=== PATIENT | male | born 1970 | race Caucasian/White ===

== ENCOUNTER 2020-09-21 23:04 | Inpatient (IN) | payer BC, SELFPAY ==
[2020-09-21 23:18] VITALS: BP 132/83; PULSE 99; RESP 17; TEMP 36.6; O2SAT 96; BMI 24.3
--- NOTE | 2020-09-21 23:38 | PC.NURSE ---
ARNEL called and spoke with Avis, confirmed that patient got seen in the community, disposition is section 12 Inpatient Bed search.
[2020-09-21 23:52] LABS: Glucose Urine UA NEG (NEG); Leukocyte Esterase Urine NEG (NEG); Nitrite Urine NEG (NEG); Specific Gravity - Urine <= 1.005 (1.005-1.025); Urine Blood NEG (NEG); Urine Ketones NEG (NEG); Urine Protein NEG (NEG-TRACE)
[2020-09-21 23:58] LABS: Appearance Urine CLEAR; Color Urine YELLOW
[2020-09-22 00:04] LABS: Bacteria Urine TRACE /LPF; RBC Urine 0-2 /HPF (0); Squamous Epithelial Cell Urine TRACE /LPF; WBC Urine 0-2 /HPF (0-4)
[2020-09-22 00:10] LABS: Basophils Percent Auto 0.5 % (0-2); Eosinophils Absolute Auto 0.2 X10*3/uL (0.0-0.4); Eosinophils Percent Auto 2.2 % (0-4); Hematocrit 43.3 % (42-52); Imm Gran Abs Auto 0.01 X10*3/uL (0.00-0.03); Imm Gran Pct Auto 0.1 % (0.0-0.4); Lymphocytes Absolute Auto 2.8 X10*3/uL (1.2-4.9); Lymphocytes Percent Auto 36.9 % (20-40); MANUAL DIFF FLAG NO; Mean Corpuscular HGB Conc 34.6 g/dl (31.0-36.0); Mean Corpuscular Hemoglobin 32.6 pg (27.0-33.0); Mean Corpuscular Volume 94.1 fL (80-98); Mean Platelet Volume 8.5 fL (9.4-12.4); Monocytes Absolute Auto 0.7 X10*3/uL (0.1-1.2); Monocytes Percent Auto 9.3 % (2-11); Neutrophils Absolute Auto 3.9 X10*3/uL (2.0-8.3); Platelet Count 221 X10*3/uL (160-400); Red Cell Distribution Width 12.7 % (11.0-16.0); White Blood Count 7.6 X10*3/uL (4.8-10.8)
[2020-09-22 00:21] LABS: Amphetamine Screen Urine Not Detected (Not Detect); Barbiturates, Urine Not Detected (Not Detect); Benzodiazepines Screen Urine Not Detected (Not Detect); Cannabinoid Screen Urine Not Detected (Not Detect); Cocaine Screen Urine Not Detected (Not Detect); Opiate Screen Urine Not Detected (Not Detect); Phencyclidine Screen Urine Not Detected (Not Detect)
[2020-09-22 00:31] LABS: Influenza A PCR NEGATIVE (Negative); Influenza B PCR NEGATIVE (Negative); Resp Syncy Virus RNA Qual PCR NEGATIVE (Negative); SARS COV2 PCR INHOUSE NEGATIVE (Negative)
--- NOTE | 2020-09-22 00:44 | ED_ITS ---
HPI - Psych General Chief Complaint: Psychiatric Symptoms Stated Complaint: SI Time Seen by Provider: 09/22/20 00:41 Source: patient and EMS Mode of arrival: EMS Limitations: no limitations History of Present Illness HPI Narrative: Patient comes to emergency room by EMS. Patient states that he feels suicidal, wants to run into traffic, also states that he would kill himself by inhaling carbon monoxide from a car engine. Patient reports that he recently was discharged/kicked out of [facility]. Patient was seen by [facility] in the community, is now under Section 12. Patient states every day he is anxious and depressed. Patient states that he is an alcoholic and would like to get help for detox Related Data Allergies Allergy/AdvReac Type Severity Reaction Status Date / Time No Known Allergies Allergy Verified 09/21/20 23:29 Review of Systems Review of Systems: Constitutional : No Weight loss, No Fever, No Chills, No Night Sweats, No Fatigue, No Malaise ENT/Mouth : No Hearing loss, No Ear Pain, No Nasal Congestion, No Sinus Pain, No Hoarseness, No sore throat, No Rhinorrhea, No Swallowing Difficulty Eyes: No Eye Pain, No Swelling, No Redness, No Foreign Body, No Discharge, No Vision Changes Cardiovascular : No Chest Pain, No SOB, No Dyspnea on Exertion, No Orthopnea, No Edema, No Palpitations Respiratory : No Cough, No Sputum, No Wheezing, No Smoke Exposure, No Dyspnea Gastrointestinal : No Nausea, No Vomiting, No Diarrhea, No Constipation, No abdominal Pain, No Hematochezia, No Melena Genitourinary : no irregular bleeding, No Dysuria, No Urinary Frequency, No Hematuria, No Urinary Incontinence, No Urgency, No Flank Pain, No Urinary Flow Changes, No Hesitancy Musculoskeletal : No joint pain, No Myalgias, No Joint Swelling Skin : No Skin Lesions, No rash Neuro : No Weakness, No Numbness, No Paresthesias, No Loss of Consciousness, No Dizziness, No Headache Psych : Complain of anxiety and depression, wanting detox for alcoholism, intermittently is SI with a plan, and intermittently no SI or HI Heme/Lymph: No Bruising, No Bleeding,No Lymphadenopathy Endocrine : No Polyuria, No Polydipsia, No Temperature Intolerance PMFSH Social History Social History Advance Directives: No Advance Directives Information Provided: No Physical Exam Vital Signs: Vital Signs: Last Vital Signs Temp 98 F 09/21/20 23:18 Pulse 99 09/21/20 23:18 Resp 17 09/21/20 23:18 BP 132/83 09/21/20 23:18 Pulse Ox 96 09/21/20 23:18 Body Mass Index 24.3 Const: Other: Appearance: Alert. Oriented X3. No acute distress. Seems anxious Eyes: Pupils equal, round and reactive to light. ENT: Pharynx normal. Neck: Normal inspection. Neck supple. No lymph nodes noted. No crepitus CVS: Normal heart rate and rhythm. Pulses normal. Normal S1 and S2 Respiratory: No respiratory distress. Breath sounds normal. No Wheezing. No rales Abdomen: Soft and nontender. No rigidity. No distention. good BS x4 Skin: Skin warm and dry. Normal skin color. Normal skin turgor. Extremities: No lower extremity edema. No lower extremity edema. No Lacerations. No Rash Neuro: Oriented X 3. No motor deficit. No sensory deficit. Cranial nerves 2- 12 grossly intact, calm, cooperative Course Course Course Narrative: Patient remains calm and cooperative, ETOH level 222. [facility] health network consult pending, now under Section 12 by [facility] in the community, patient has a bed search. Physician observation started. Sign-out given to Dr. Garcia [facility] - Psych Lab Data Result diagrams: 09/22/20 00:02 09/22/20 00:02 Labs: Lab Results 09/21/20 09/21/20 09/21/20 Range/Units 23:40 23:40 23:40 WBC (4.8-10.8) X10*3/uL RBC (4.60-5.80) X10*6/uL Hgb (14.0-18.0) g/dl Hct (42-52) % MCV (80-98) fL MCH (27.0-33.0) pg MCHC (31.0-36.0) g/dl RDW (11.0-16.0) % Plt Count (160-400) X10*3/uL MPV (9.4-12.4) fL Immature Gran % (Auto) (0.0-0.4) % Neut % (Auto) (45-73) % Lymph % (Auto) (20-40) % [place] % (Auto) (2-11) % Eos % (Auto) (0-4) % Baso % (Auto) (0-2) % Lymph # (Auto) (1.2-4.9) X10*3/uL [place] # (Auto) (0.1-1.2) X10*3/uL Eos # (Auto) (0.0-0.4) X10*3/uL Baso # (Auto) (0.0-0.2) X10*3/uL Abs Immat Gran (auto) (0.00-0.03) X10*3/uL Absolute Neuts (auto) (2.0-8.3) X10*3/uL Absolute Nucleated RBC (0.0-0.012) X10*3/uL Nucleated RBC % (auto) (0.0-0.2) /100WBC Sodium (135-145) mmol/L Potassium (3.3-5.1) mmol/L Chloride (96-108) mmol/L Carbon Dioxide (22-29) mmol/L Anion Gap (12-20) BUN (9-16) mg/dL Creatinine (0.5-1.4) mg/dL Estim Creat Clear Calc Estimated GFR Random Glucose (60-115) mg/dL Calcium (8.4-10.2) mg/dL Magnesium (1.6-2.6) mg/dL Urine Color YELLOW Urine Appearance CLEAR Urine pH 6.0 (5.0-8.0) Ur Specific [place] <= 1.005 (1.005-1.025) Urine Protein NEG (NEG-TRACE) MG/DL Urine Glucose (UA) NEG (NEG) MG/DL Urine Ketones NEG (NEG) MG/DL Urine Blood NEG (NEG) Urine Nitrite NEG (NEG) Ur Leukocyte Esterase NEG (NEG) Urine RBC 0-2 (0) /HPF Urine WBC 0-2 (0-4) /HPF Ur Squamous Epith Cells TRACE /LPF Urine Bacteria TRACE /LPF Urine Opiates Screen Not Detected (Not Detect) Ur Barbiturates Screen Not Detected (Not Detect) Ur Phencyclidine Scrn Not Detected (Not Detect) Ur Amphetamines Screen Not Detected (Not Detect) U Benzodiazepines Scrn Not Detected (Not Detect) Urine Cocaine Screen Not Detected (Not Detect) U Marijuana (THC) Screen Not Detected (Not Detect) Ethyl Alcohol mg/dL Coronavirus (PCR) NEGATIVE (Negative) Influenza Type A (PCR) NEGATIVE (Negative) Influenza Type B (PCR) NEGATIVE (Negative) RSV RNA Qual (PCR) NEGATIVE (Negative) 09/22/20 09/22/20 09/22/20 Range/Units 00:02 00:02 00:02 WBC 7.6 (4.8-10.8) X10*3/uL RBC 4.60 (4.60-5.80) X10*6/uL Hgb 15.0 (14.0-18.0) g/dl Hct 43.3 (42-52) % MCV 94.1 (80-98) fL MCH 32.6 (27.0-33.0) pg MCHC 34.6 (31.0-36.0) g/dl RDW 12.7 (11.0-16.0) % Plt Count 221 (160-400) X10*3/uL MPV 8.5 L (9.4-12.4) fL Immature Gran % (Auto) 0.1 (0.0-0.4) % Neut % (Auto) 51.0 (45-73) % Lymph % (Auto) 36.9 (20-40) % [place] % (Auto) 9.3 (2-11) % Eos % (Auto) 2.2 (0-4) % Baso % (Auto) 0.5 (0-2) % Lymph # (Auto) 2.8 (1.2-4.9) X10*3/uL [place] # (Auto) 0.7 (0.1-1.2) X10*3/uL Eos # (Auto) 0.2 (0.0-0.4) X10*3/uL Baso # (Auto) 0.0 (0.0-0.2) X10*3/uL Abs Immat Gran (auto) 0.01 (0.00-0.03) X10*3/uL Absolute Neuts (auto) 3.9 (2.0-8.3) X10*3/uL Absolute Nucleated RBC 0.000 (0.0-0.012) X10*3/uL Nucleated RBC % (auto) 0.0 (0.0-0.2) /100WBC Sodium 145 (135-145) mmol/L Potassium 3.7 (3.3-5.1) mmol/L Chloride 107 (96-108) mmol/L Carbon Dioxide 24 (22-29) mmol/L Anion Gap 18 (12-20) BUN 7 L (9-16) mg/dL Creatinine 0.87 (0.5-1.4) mg/dL Estim Creat Clear Calc 99.3 Estimated GFR > 60 Random Glucose 97 (60-115) mg/dL Calcium 9.7 (8.4-10.2) mg/dL Magnesium 1.8 (1.6-2.6) mg/dL Urine Color Urine Appearance Urine pH (5.0-8.0) Ur Specific [place] (1.005-1.025) Urine Protein (NEG-TRACE) MG/DL Urine Glucose (UA) (NEG) MG/DL Urine Ketones (NEG) MG/DL Urine Blood (NEG) Urine Nitrite (NEG) Ur Leukocyte Esterase (NEG) Urine RBC (0) /HPF Urine WBC (0-4) /HPF Ur Squamous Epith Cells /LPF Urine Bacteria /LPF Urine Opiates Screen (Not Detect) Ur Barbiturates Screen (Not Detect) Ur Phencyclidine Scrn (Not Detect) Ur Amphetamines Screen (Not Detect) U Benzodiazepines Scrn (Not Detect) Urine Cocaine Screen (Not Detect) U Marijuana (THC) Screen (Not Detect) Ethyl Alcohol 222 mg/dL Coronavirus (PCR) (Negative) Influenza Type A (PCR) (Negative) Influenza Type B (PCR) (Negative) RSV RNA Qual (PCR) (Negative) Discharge Plan Discharge Clinical Impression: Alcohol dependence, Suicidal ideation
[2020-09-22 00:50] LABS: Ethanol 222 mg/dL
[2020-09-22] MEDS: LORazepam 1 MG TABLET 2 MG PO (00:50)
[2020-09-22 00:53] LABS: Anion Gap 18 (12-20); Blood Urea Nitrogen 7 mg/dL (9-16); Calcium 9.7 mg/dL (8.4-10.2); Carbon Dioxide 24 mmol/L (22-29); Chloride 107 mmol/L (96-108); Creatinine Clr Calc Pharmacy 99.3; Estimated Glomerular Filt Rate > 60; Glucose Random 97 mg/dL (60-115); Magnesium 1.8 mg/dL (1.6-2.6); Potassium 3.7 mmol/L (3.3-5.1); Sodium 145 mmol/L (135-145)
[2020-09-22 03:52] VITALS: BP 107/72; PULSE 83; RESP 16; TEMP 36.4; O2SAT 98
--- NOTE | 2020-09-22 07:07 | PC.NURSE ---
Patient had hard time falling sleep, provider ordered ativan 2 mg/administered as ordered/with + effect, and patient slept well, VSS, disposition inpatient bed search, will continue to monitor
--- NOTE | 2020-09-22 07:19 | PC.NURSE ---
patient remains at rest at present patient appears in no distress
[2020-09-22 10:47] VITALS: BP 124/85; PULSE 72; RESP 17; TEMP 36.6; O2SAT 95
[2020-09-22 22:00] VITALS: RESP 16
--- NOTE | 2020-09-22 23:40 | PC.NURSE ---
pt has been sleeping easy to arrouse, pt states he wants to seek detox. pt skin pink warm and dry no tremors seen or felt at this time.
--- NOTE | 2020-09-22 23:43 | PC.NURSE ---
pt sleeping visable on monitor, pod protocals maintained,
[2020-09-23 11:27] VITALS: BP 117/81; PULSE 63; RESP 18; TEMP 36.9; O2SAT 98
[2020-09-23 18:10] VITALS: BP 130/76; PULSE 62; TEMP 36.3; O2SAT 100
[2020-09-23] MEDS: Calcium Carbonate 750 MG TAB.CHEW 1500 MG PO (19:13)
--- NOTE | 2020-09-23 23:32 | PC.NURSE ---
Patient resting comfortably in bed no s/s of discomfort will continue to monitor.
[2020-09-24 00:33] VITALS: BP 113/76; PULSE 58; RESP 16; TEMP 36; O2SAT 100
[2020-09-24 08:04] VITALS: BP 124/81; PULSE 81; RESP 18; TEMP 36.1; O2SAT 99
--- NOTE | 2020-09-25 | ECG_ITS ---
Test Reason : MEDCLEARANCE Blood Pressure : / mmHG Vent. Rate : 061 BPM Atrial Rate : 061 BPM P-R Int : 156 ms QRS Dur : 096 ms QT Int : 382 ms P-R-T Axes : 046 057 018 degrees QTc Int : 384 ms Normal sinus rhythm Normal ECG No previous ECGs available Referred By: Cici Valentine Electronically Signed By:AVERY GAMA MD
[2020-09-25 00:16] VITALS: BP 117/78; PULSE 65; RESP 16; TEMP 36.6; O2SAT 100
--- NOTE | 2020-09-25 06:35 | PC.NURSE ---
Patient overall slept 4 hours, behavior appropriate, appetite good, disposition is section 12 inpatient bed search, VSS, asymptomatic, will continue to monitor.
--- NOTE | 2020-09-25 07:14 | PC.NURSE ---
patient remained at rest at beginning of shift, appears in no distress patient appropriately requesting snacks.
[2020-09-25 08:47] VITALS: BP 111/70; PULSE 73; RESP 15; TEMP 36.4; O2SAT 98
[2020-09-25] MEDS: Multivitamin TABLET 1 TAB PO (15:21)
[2020-09-25 16:20] VITALS: BP 130/96; PULSE 68; TEMP 36.5
--- NOTE | 2020-09-25 17:38 | PC.ADMIT ---
Pt is a 49 year old male who present to M5 from [facility] at approx 1625 on a cv status. Pt is covid -. Utox- Etoh BAL.222. Pt assessed at home via zoom secondary to endorsing SI with plan and intent to put the house in the tailpipe, tape up all the windows and asphyxiate so i don't hurt anymore. Pt experiencing increased depressive thoughts and feelings of helplessness, hopelessness, and worthlessness which has caused him to drink heavily over the past 6 months. Pt denied SI/HI/AVH during admit. Pt does not have any outpt services. Pt wanting a PCP and therapist. 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 Monitor for safety and start treatment plam.
[2020-09-25 22:30] VITALS: BP 128/72; PULSE 68; TEMP 36.7
[2020-09-26] MEDS: Acetaminophen 325 MG TABLET 650 MG PO ×2 (00:29→08:32)
[2020-09-26] MEDS: hydrOXYzine HCL 25 MG TABLET PO (00:30)
[2020-09-26 05:24] VITALS: BP 119/81; PULSE 68; RESP 16; TEMP 36; O2SAT 99
[2020-09-26 08:00] VITALS: BP 129/79; PULSE 69; RESP 16; TEMP 36.6; O2SAT 98
[2020-09-26] MEDS: Thiamine HCL 100 MG TABLET PO (08:32)
[2020-09-26 08:33] LABS: Estimated Average Glucose 97 mg/dL
[2020-09-26 08:49] LABS: Alanine Aminotransferase 39 U/L (0-40); Albumin Level 4.6 g/dL (3.5-5.0); Alkaline Phosphatase 71 U/L (39-117); Aspartate Amino Transferase 39 U/L (5-37); Bilirubin Direct 0.3 mg/dL (0.0-0.5); Bilirubin Total 0.6 mg/dL (0.0-1.0); Cholesterol 175 mg/dL; HDL Cholesterol 94 mg/dL; LDL Cholesterol Calculated 71 mg/dl; Total Protein 7.5 g/dL (6.5-8.0); Triglycerides 51 mg/dL
[2020-09-26 09:10] LABS: Free T4 (Free Thyroxine) 1.08 ng/dL (0.71-1.85); Thyroid Stimulating Hormone 1.39 uIU/mL (0.32-4.0)
[2020-09-26 09:34] LABS: Vitamin B12 365 pg/mL (200-900)
[2020-09-26 12:00] VITALS: BP 134/77; PULSE 76; RESP 16; TEMP 36.6; O2SAT 97
--- NOTE | 2020-09-26 14:00 | PC.NURSE ---
This nurse was informed that the PT might need nicotine alternatives to help with cravings. PT was asked if he would like something to help with cravings, but the PT declined.
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
[2020-09-26 16:00] VITALS: BP 134/92; PULSE 70; RESP 18; TEMP 36.6; O2SAT 99
[2020-09-26 18:00] VITALS: BP 134/92; PULSE 70; RESP 18; TEMP 36.6; O2SAT 99
[2020-09-26] MEDS: LORazepam 1 MG TABLET PO (19:15)
[2020-09-26] MEDS: Mirtazapine 15 MG TABLET PO (21:06)
[2020-09-27 05:48] VITALS: BP 117/60; PULSE 65; RESP 18; TEMP 35.7; O2SAT 100
[2020-09-27] MEDS: Lidocaine 4 % Patch ADH..PATCH 1 PATCH TRANSDERMA (06:36)
[2020-09-27] MEDS: Thiamine HCL 100 MG TABLET PO (08:29)
[2020-09-27] MEDS: LORazepam 1 MG TABLET PO (15:30)
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
[2020-09-27 17:18] VITALS: BP 111/74; PULSE 77; RESP 18; TEMP 36.7; O2SAT 97
[2020-09-27] MEDS: hydrOXYzine HCL 25 MG TABLET PO (20:34)
[2020-09-27] MEDS: Mirtazapine 15 MG TABLET PO (20:34)
[2020-09-28 06:00] VITALS: BP 112/75; PULSE 79; RESP 16; TEMP 36.3; O2SAT 98
[2020-09-28] MEDS: Thiamine HCL 100 MG TABLET PO (08:54)
[2020-09-28] MEDS: Lidocaine 4 % Patch ADH..PATCH 1 PATCH TRANSDERMA (11:51)
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
[2020-09-28 18:00] VITALS: BP 132/83; PULSE 95; TEMP 36.7
[2020-09-28] MEDS: Mirtazapine 15 MG TABLET PO (20:51)
[2020-09-29] MEDS: Acetaminophen 325 MG TABLET 650 MG PO (04:45)
[2020-09-29 06:00] VITALS: BP 106/67; PULSE 71; RESP 18; TEMP 36.1; O2SAT 98
[2020-09-29] MEDS: Thiamine HCL 100 MG TABLET PO (07:43)
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
== END 2020-09-29 12:00 | disposition home or self-care (01) | DRG 751 ==
LOC: HO.ED 09-23 16:58 → HO.PM5 09-25 14:14
PROVIDERS: Emergency Medicine; Admitting Provider Psychiatry & Neurology Psychiatry; Emergency Provider Emergency Medicine; Visit Provider Clinical Nurse Specialist Psychiatric/Mental Health, Adult
DX: F33.2 Major depressive disorder, recurrent severe without psychotic features (principal); R45.851 Suicidal ideations; F43.10 Post-traumatic stress disorder, unspecified; F17.210 Nicotine dependence, cigarettes, uncomplicated; F10.20 Alcohol dependence, uncomplicated; Z71.6 Tobacco abuse counseling; Z20.822 Contact with and (suspected) exposure to COVID-19; Z79.899 Other long term (current) drug therapy
CPT/HCPCS: 0241U; 36415; 80048; 80061; 80076; 80307; 81001; 82077; 82607; 83036; 83735; 84439; 84443; 85025; 93005; 99285

== ENCOUNTER 2022-09-20 18:01 | Inpatient (IN) | payer BC, SELFPAY ==
--- NOTE | ~2022-09-20 | XR_ITS ---
EXAMINATION: XR CHEST CLINICAL INFORMATION: Chest pain. COMPARISON: None available. TECHNIQUE: Frontal view of the chest was obtained. FINDINGS: Normal appearance of the cardiomediastinal silhouette. No focal airspace opacities, pleural effusion or pneumothorax. No acutely appearing displaced rib fractures. Visualized upper abdomen is within normal limits. XR/XR chest 1V IMPRESSION: No acute cardiopulmonary findings.
--- NOTE | ~2022-09-20 | CT_ITS ---
EXAMINATION: CT HEAD WITHOUT CONTRAST CLINICAL INFORMATION: Syncope. COMPARISON: No relevant prior imaging. TECHNIQUE: Contiguous axial imaging was performed from the skull base to vertex without intravenous administration of contrast. This CT examination was performed using dose optimization techniques as appropriate, variously including the following: *Automated exposure control *Adjustment of mA and/or kV according to patient size (this includes techniques or standardized protocols for targeted exams where dose is matched to indication/reason for exam; i.e. extremities or head) *Use of iterative reconstruction technique DLP: 680 mGy-cm FINDINGS: There is no acute intracranial hemorrhage or abnormal extra-axial collection. No intracranial mass effect or midline shift. Lateral and third ventricles are normal. No hydrocephalus. Méndez-white matter differentiation is preserved and there is no evidence of acute territorial infarct. The calvarium and skull base are intact. Mastoid air cells and middle ear cavities are well aerated. No active paranasal sinus disease. CT/CT head/brain wo IV con IMPRESSION: Normal CT scan of the head.
--- NOTE | 2022-09-20 18:05 | ECG_ITS ---
Test Reason : ETOH Blood Pressure : / mmHG Vent. Rate : 084 BPM Atrial Rate : 084 BPM P-R Int : 152 ms QRS Dur : 094 ms QT Int : 370 ms P-R-T Axes : 042 066 -29 degrees QTc Int : 437 ms Normal sinus rhythm Low voltage QRS Lateral infarct , age undetermined Abnormal ECG When compared with ECG of 25-SEP-2020 14:14, Lateral infarct is now Present T wave inversion more evident in Inferior leads Nonspecific T wave abnormality now evident in Lateral leads Referred By: Keri Joyner Electronically Signed By:EDNA SOLOMON
--- NOTE | 2022-09-20 18:12 | ED.GENADULT ---
HPI - General Adult General Chief complaint: Syncope Stated complaint: ETOH/Chest pain Time Seen by Provider: 09/20/22 18:05 Source: patient and EMS Mode of arrival: EMS Limitations: no limitations History of Present Illness HPI narrative: This is a 51-year-old male history of alcohol use disorder presenting to the emergency department via ambulance for evaluation of multiple syncopal episodes, seeking detox, also having suicidal ideation without particular plan. Patient tells me that he does not remember syncopized and, as mother reported to EMS that he syncopized 3 times, dropped from a standing height down to the ground. Head strike, loss of consciousness, patient not on thinners. Patient denying any headaches at this time or visual disturbances. Patient is reporting right-sided anterior chest wall pain that started today. Patient reports drinking 14 beers a day last drink was about an hour ago. Patient states he would like to go to detox, he is feeling suicidal and depressed. Patient denies shortness of breath, nausea, vomiting, abdominal pain, headache, vision changes, dizziness, weakness. Alert and oriented x4 on arrival. GCS 15. NIH stroke scale 0. Related Data Previous Rx's Medication Instructions Recorded lidocaine 4 % topical patch 1 patch transdermal DAILY PRN 09/29/20 (Lidocaine Pain Relief) back, knee #15 ea mirtazapine 15 mg tablet 15 mg PO BEDTIME #30 tabs 09/29/20 multivitamin 1 tab PO DAILY #30 tabs 09/29/20 thiamine mononitrate (vit B1) 100 100 mg PO DAILY #30 tabs 09/29/20 mg tablet trazodone 50 mg tablet 50 mg PO BEDTIME PRN Insomnia #30 09/29/20 tabs Allergies Allergy/AdvReac Type Severity Reaction Status Date / Time carrot Allergy Severe Anaphylaxis Verified 09/20/22 18:43 Review of Systems Review of Systems: Constitutional : No Weight loss, No Fever, No Chills, No Fatigue, No Malaise ENT/Mouth : No sore throat, No Rhinorrhea Eyes: No Eye Pain, No Swelling, No Redness Cardiovascular : + Chest Pain, No SOB, No Dyspnea on Exertion, No Orthopnea, No Edema, No Palpitations Respiratory : No Cough, No Sputum, No Wheezing Gastrointestinal : No Nausea, No Vomiting, No Diarrhea, No Constipation, No abdominal Pain, No Hematochezia, No Melena Genitourinary : No Dysuria, No Urinary Frequency, No Hematuria, Musculoskeletal : No joint pain, No Myalgias, No Joint Swelling Skin : No Skin Lesions, No rash Neuro : No Weakness, No Numbness, No Dizziness, No Headache Psych : No Anxiety/Panic, No Depression All other systems reviewed and are negative Yes all other systems are reviewed and are negative [facility]LY [facility] Past Medical History Attestation statement: The following information was validated with the patient. Source: old records reviewed and nursing notes reviewed Medical History Alcohol use disorder, severe, dependence PTSD (post-traumatic stress disorder) Recurrent major depression-severe Social History Social History Household Members: Family and None Household Members Other:: mother Housing: Apartment Do you presently have visiting nurse or other home services: No Alcohol intake: current Alcohol intake frequency: 3 or more drinks per day Alcohol type: beer and hard liquor Patient Tobacco Use Status: Current everyday Tobacco user Tobacco use type: Cigarette Cigarette Packs Per Day: 1.5 Cigarettes Per Day: 30.0 Years Smoked: 15+ Smoked in Last 30 Days: Yes Second Hand Smoke Exposure: Yes Use of substances other than those prescribed or required for medical reasons: Unknown Substance Use Type: Marijuana Advance Directives: No Advance Directives Information Provided: No service: No Sexual orientation: Straight/Heterosexual Physical Exam ED Vital Signs: Vital Signs - 24 hr 09/20/22 18:43 09/20/22 18:48 09/20/22 19:37 Temperature 98.2 F 98.5 F Pulse Rate 90 91 Respiratory Rate 16 16 Blood Pressure 122/77 131/75 Pulse Oximetry 96 96 96 Oxygen Delivery Method Room Air Room Air Room Air 09/20/22 22:12 Temperature Pulse Rate 84 Respiratory Rate 23 H Blood Pressure 117/71 Pulse Oximetry 95 Oxygen Delivery Method Room Air BMI result Body Mass Index 27.4 vss Appearance: Alert.? Oriented X3.? No acute distress.? Head: Normocephalic, atraumatic, no step-offs or deformities Eyes: Pupils equal, round and reactive to light.? CVS: Normal heart rate and rhythm.? Pulses normal.?+ right-sided anterior chest wall pain on palpation. Respiratory: No respiratory distress.? Breath sounds normal.? Abdomen: Soft and nontender.? Skin: Skin warm and dry.? Normal skin color.? Normal skin turgor.? Extremities: No lower extremity edema.? No calf ttp. 5/5 strength to bilateral upper and lower extremities Back: No midline tenderness, no C-spine tenderness, full range of motion, no CVA tenderness bilaterally Neuro: Oriented X 3.? No motor deficit.? No sensory deficit. CN 2-12 intact . Negative Romberg and pronator drift. Normal hand business information consultant. Normal [id number], [id number]. Course Reevaluation(s) Reevaluation #1: CBC with a normocytic anemia, however not deviating significantly from baseline. Chemistry unremarkable transaminases elevated in a 2-1 fashion likely secondary to alcohol abuse. Patient's total CPK noted to be 1063 consistent with acute rhabdo, patient with lactic acidosis likely secondary to poor p.o. intake/dehydration or alcoholic ketoacidosis I do not suspect infection, troponin 74.7, 2nd troponin 77.6, EKG nonischemic, chest pain reproducible unlikely ACS. Likely secondary to fall. D-dimer negative. Unlikely PE patient without significant risk factors. Urine positive for marijuana. Ethanol level 241. Patient placed on phenobarbital protocol by hospitalist, patient will be admitted for acute alcohol withdrawal, fall switch could be alcohol withdrawal seizures. Time: 22:59 Medications Administered Discontinued Medications Generic Name Dose Route Start Last Admin Trade Name Freq PRN Reason Stop Dose Admin Sodium Chloride 1,000 mls @ 999 mls/hr 09/20/22 20:30 09/20/22 21:44 Ns IV 09/20/22 21:30 Infused .Q1H1M KAYE Infusion Lorazepam 2 mg 09/20/22 20:25 09/20/22 20:37 Lorazepam 2 Mg/Ml Vial IVPUSH 09/20/22 20:26 2 mg ONCE ONE Administration Medical Decision Making Medical Decision Making [facility] Narrative: 1809 51-year-old male presents with multiple syncopal episodes per mother, seeking detox. History of alcohol withdrawal seizures. Physical examination neuro nonfocal. Cerebellar intact. Regular rate and rhythm. Abdomen soft nontender nondistended. Lungs clear. There is anterior right-sided chest wall tenderness to palpation Concerns for possible chest wall trauma secondary to fall/syncope. Will rule out rib fractures. Will obtain EKG to rule out dysrhythmias. Will rule out metabolic derangements and polysubstance abuse. Unlikely ACS or PE. Also some concerns for syncope. Will rule out orthostatic hypotension Plan labs, imaging, EKG Differential Diagnosis Differential Diagnoses: The differential diagnosis associated with the presentation includes Concerns for possible chest wall trauma secondary to fall/syncope. Will rule out rib fractures. Will obtain EKG to rule out dysrhythmias. Will rule out metabolic derangements and polysubstance abuse. Unlikely ACS or PE. Also some concerns for syncope vs seziure. Will rule out orthostatic hypotension Admission/Observation Consideration of admission/observation: Escalation of care including admission/observation considered Possible Consult Healthcare Provider Management of the patient was discussed with: Hospitalist Lab Data MDM Lab Attestation statement: I reviewed the patient's lab results. 09/20/22 18:30 09/20/22 18:30 Labs: Lab Results 09/20/22 09/20/22 09/20/22 Range/Units 18:30 18:30 18:30 WBC 10.7 (4.8-10.8) X10*3/uL RBC 4.21 L (4.60-5.80) X10*6/uL Hgb 13.8 L (14.0-18.0) g/dl Hct 39.1 L (42.0-52.0) % MCV 92.9 (80.0-98.0) fL MCH 32.8 (27.0-33.0) pg MCHC 35.3 (31.0-36.0) g/dl RDW 12.4 (11.0-16.0) % Plt Count 208 (160-400) X10*3/uL MPV 8.6 L (9.4-12.4) fL Immature Gran % (Auto) 0.5 H (0.0-0.4) % Neut % (Auto) 54.7 (45-73) % Lymph % (Auto) 33.9 (20-40) % [place] % (Auto) 9.9 (2-11) % Eos % (Auto) 0.5 (0-4) % Baso % (Auto) 0.5 (0-2) % Lymph # (Auto) 3.6 (1.2-4.9) X10*3/uL [place] # (Auto) 1.1 (0.1-1.2) X10*3/uL Eos # (Auto) 0.1 (0.0-0.4) X10*3/uL Baso # (Auto) 0.1 (0.0-0.2) X10*3/uL Abs Immat Gran (auto) 0.05 H (0.00-0.03) X10*3/uL Absolute Neuts (auto) 5.9 (2.0-8.3) x10*3/uL Absolute Nucleated RBC 0.000 (0.0-0.012) X10*3/uL Nucleated RBC % (auto) 0.0 (0.0-0.2) /100WBC D-Dimer High Sensitivty 209 NG/ML Sodium 143 (135-145) mmol/L Potassium 3.3 (3.3-5.1) mmol/L Chloride 103 (96-108) mmol/L Carbon Dioxide 25 (22-29) mmol/L Anion Gap 18 (12-20) BUN 5 L (9-16) mg/dL Creatinine 0.71 (0.5-1.4) mg/dL Estim Creat Clear Calc 119.0 Estimated GFR > 60 Random Glucose 106 (60-115) mg/dL Lactic Acid (0.5-2.0) mmol/L Lactic Acid F/U @ 2Hr (0.5-2.0) mmol/L Calcium 9.5 (8.4-10.2) mg/dL Magnesium 2.1 (1.6-2.6) mg/dL Total Bilirubin 0.7 (0.0-1.0) mg/dL AST 201 H (5-37) U/L ALT 121 H (0-40) U/L Alkaline Phosphatase 71 (39-117) U/L Total Creatine Kinase (38-174) U/L Troponin I High Sens (<3.5-35.0) ng/L Total Protein 7.9 (6.5-8.0) g/dL Albumin 4.8 (3.5-5.0) g/dL Lipase 87 H (8-78) U/L Urine Color Urine Appearance Urine pH (5.0-9.0) Ur Specific [place] (1.005-1.025) Urine Protein (Neg-Trace) mg/dL Urine Glucose (UA) (Negative) mg/dL Urine Ketones (Negative) mg/dL Urine Blood (Negative) Urine Nitrite (Negative) Ur Leukocyte Esterase (Negative) Urine RBC (0-2) /HPF Urine WBC (0-5) /HPF Ur Squamous Epith Cells (0-2) /HPF Urine Bacteria (None Seen) Hyaline Casts (0-2) /LPF Urine Opiates Screen (Not Detect) Urine Fentanyl Screen (Not Detect) Ur Barbiturates Screen (Not Detect) Ur Phencyclidine Scrn (Not Detect) Ur Amphetamines Screen (Not Detect) U Benzodiazepines Scrn (Not Detect) Urine Cocaine Screen (Not Detect) U Marijuana (THC) Screen (Not Detect) Ethyl Alcohol 241 mg/dL COVID-19 (JESS) (Negative) COVID-19 Clin Com 09/20/22 09/20/22 09/20/22 Range/Units 18:30 18:30 18:30 WBC (4.8-10.8) X10*3/uL RBC (4.60-5.80) X10*6/uL Hgb (14.0-18.0) g/dl Hct (42.0-52.0) % MCV (80.0-98.0) fL MCH (27.0-33.0) pg MCHC (31.0-36.0) g/dl RDW (11.0-16.0) % Plt Count (160-400) X10*3/uL MPV (9.4-12.4) fL Immature Gran % (Auto) (0.0-0.4) % Neut % (Auto) (45-73) % Lymph % (Auto) (20-40) % [place] % (Auto) (2-11) % Eos % (Auto) (0-4) % Baso % (Auto) (0-2) % Lymph # (Auto) (1.2-4.9) X10*3/uL [place] # (Auto) (0.1-1.2) X10*3/uL Eos # (Auto) (0.0-0.4) X10*3/uL Baso # (Auto) (0.0-0.2) X10*3/uL Abs Immat Gran (auto) (0.00-0.03) X10*3/uL Absolute Neuts (auto) (2.0-8.3) x10*3/uL Absolute Nucleated RBC (0.0-0.012) X10*3/uL Nucleated RBC % (auto) (0.0-0.2) /100WBC D-Dimer High Sensitivty NG/ML Sodium (135-145) mmol/L Potassium (3.3-5.1) mmol/L Chloride (96-108) mmol/L Carbon Dioxide (22-29) mmol/L Anion Gap (12-20) BUN (9-16) mg/dL Creatinine (0.5-1.4) mg/dL Estim Creat Clear Calc Estimated GFR Random Glucose (60-115) mg/dL Lactic Acid (0.5-2.0) mmol/L Lactic Acid F/U @ 2Hr (0.5-2.0) mmol/L Calcium (8.4-10.2) mg/dL Magnesium (1.6-2.6) mg/dL Total Bilirubin (0.0-1.0) mg/dL AST (5-37) U/L ALT (0-40) U/L Alkaline Phosphatase (39-117) U/L Total Creatine Kinase 1063 H (38-174) U/L Troponin I High Sens 74.7 H (<3.5-35.0) ng/L Total Protein (6.5-8.0) g/dL Albumin (3.5-5.0) g/dL Lipase (8-78) U/L Urine Color Urine Appearance Urine pH (5.0-9.0) Ur Specific [place] (1.005-1.025) Urine Protein (Neg-Trace) mg/dL Urine Glucose (UA) (Negative) mg/dL Urine Ketones (Negative) mg/dL Urine Blood (Negative) Urine Nitrite (Negative) Ur Leukocyte Esterase (Negative) Urine RBC (0-2) /HPF Urine WBC (0-5) /HPF Ur Squamous Epith Cells (0-2) /HPF Urine Bacteria (None Seen) Hyaline Casts (0-2) /LPF Urine Opiates Screen (Not Detect) Urine Fentanyl Screen (Not Detect) Ur Barbiturates Screen (Not Detect) Ur Phencyclidine Scrn (Not Detect) Ur Amphetamines Screen (Not Detect) U Benzodiazepines Scrn (Not Detect) Urine Cocaine Screen (Not Detect) U Marijuana (THC) Screen (Not Detect) Ethyl Alcohol mg/dL COVID-19 (JESS) Negative (Negative) COVID-19 Clin Com See Note 09/20/22 09/20/22 09/20/22 Range/Units 18:31 18:54 18:54 WBC (4.8-10.8) X10*3/uL RBC (4.60-5.80) X10*6/uL Hgb (14.0-18.0) g/dl Hct (42.0-52.0) % MCV (80.0-98.0) fL MCH (27.0-33.0) pg MCHC (31.0-36.0) g/dl RDW (11.0-16.0) % Plt Count (160-400) X10*3/uL MPV (9.4-12.4) fL Immature Gran % (Auto) (0.0-0.4) % Neut % (Auto) (45-73) % Lymph % (Auto) (20-40) % [place] % (Auto) (2-11) % Eos % (Auto) (0-4) % Baso % (Auto) (0-2) % Lymph # (Auto) (1.2-4.9) X10*3/uL [place] # (Auto) (0.1-1.2) X10*3/uL Eos # (Auto) (0.0-0.4) X10*3/uL Baso # (Auto) (0.0-0.2) X10*3/uL Abs Immat Gran (auto) (0.00-0.03) X10*3/uL Absolute Neuts (auto) (2.0-8.3) x10*3/uL Absolute Nucleated RBC (0.0-0.012) X10*3/uL Nucleated RBC % (auto) (0.0-0.2) /100WBC D-Dimer High Sensitivty NG/ML Sodium (135-145) mmol/L Potassium (3.3-5.1) mmol/L Chloride (96-108) mmol/L Carbon Dioxide (22-29) mmol/L Anion Gap (12-20) BUN (9-16) mg/dL Creatinine (0.5-1.4) mg/dL Estim Creat Clear Calc Estimated GFR Random Glucose (60-115) mg/dL Lactic Acid 3.4 H* (0.5-2.0) mmol/L Lactic Acid F/U @ 2Hr (0.5-2.0) mmol/L Calcium (8.4-10.2) mg/dL Magnesium (1.6-2.6) mg/dL Total Bilirubin (0.0-1.0) mg/dL AST (5-37) U/L ALT (0-40) U/L Alkaline Phosphatase (39-117) U/L Total Creatine Kinase (38-174) U/L Troponin I High Sens (<3.5-35.0) ng/L Total Protein (6.5-8.0) g/dL Albumin (3.5-5.0) g/dL Lipase (8-78) U/L Urine Color Yellow Urine Appearance Clear Urine pH 6.0 (5.0-9.0) Ur Specific [place] <= 1.005 (1.005-1.025) Urine Protein Negative (Neg-Trace) mg/dL Urine Glucose (UA) Negative (Negative) mg/dL Urine Ketones Negative (Negative) mg/dL Urine Blood Trace H (Negative) Urine Nitrite Negative (Negative) Ur Leukocyte Esterase Negative (Negative) Urine RBC 0-2 (0-2) /HPF Urine WBC 0-5 (0-5) /HPF Ur Squamous Epith Cells 0-2 (0-2) /HPF Urine Bacteria None Seen (None Seen) Hyaline Casts 0-2 (0-2) /LPF Urine Opiates Screen Not Detected (Not Detect) Urine Fentanyl Screen Not Detected (Not Detect) Ur Barbiturates Screen Not Detected (Not Detect) Ur Phencyclidine Scrn Not Detected (Not Detect) Ur Amphetamines Screen Not Detected (Not Detect) U Benzodiazepines Scrn Not Detected (Not Detect) Urine Cocaine Screen Not Detected (Not Detect) U Marijuana (THC) Screen POSITIVE H (Not Detect) Ethyl Alcohol mg/dL COVID-19 (JESS) (Negative) COVID-19 Clin Com 09/20/22 09/20/22 Range/Units 20:35 22:17 WBC (4.8-10.8) X10*3/uL RBC (4.60-5.80) X10*6/uL Hgb (14.0-18.0) g/dl Hct (42.0-52.0) % MCV (80.0-98.0) fL MCH (27.0-33.0) pg MCHC (31.0-36.0) g/dl RDW (11.0-16.0) % Plt Count (160-400) X10*3/uL MPV (9.4-12.4) fL Immature Gran % (Auto) (0.0-0.4) % Neut % (Auto) (45-73) % Lymph % (Auto) (20-40) % [place] % (Auto) (2-11) % Eos % (Auto) (0-4) % Baso % (Auto) (0-2) % Lymph # (Auto) (1.2-4.9) X10*3/uL [place] # (Auto) (0.1-1.2) X10*3/uL Eos # (Auto) (0.0-0.4) X10*3/uL Baso # (Auto) (0.0-0.2) X10*3/uL Abs Immat Gran (auto) (0.00-0.03) X10*3/uL Absolute Neuts (auto) (2.0-8.3) x10*3/uL Absolute Nucleated RBC (0.0-0.012) X10*3/uL Nucleated RBC % (auto) (0.0-0.2) /100WBC D-Dimer High Sensitivty NG/ML Sodium (135-145) mmol/L Potassium (3.3-5.1) mmol/L Chloride (96-108) mmol/L Carbon Dioxide (22-29) mmol/L Anion Gap (12-20) BUN (9-16) mg/dL Creatinine (0.5-1.4) mg/dL Estim Creat Clear Calc Estimated GFR Random Glucose (60-115) mg/dL Lactic Acid (0.5-2.0) mmol/L Lactic Acid F/U @ 2Hr 2.9 H* (0.5-2.0) mmol/L Calcium (8.4-10.2) mg/dL Magnesium (1.6-2.6) mg/dL Total Bilirubin (0.0-1.0) mg/dL AST (5-37) U/L ALT (0-40) U/L Alkaline Phosphatase (39-117) U/L Total Creatine Kinase (38-174) U/L Troponin I High Sens 77.6 H (<3.5-35.0) ng/L Total Protein (6.5-8.0) g/dL Albumin (3.5-5.0) g/dL Lipase (8-78) U/L Urine Color Urine Appearance Urine pH (5.0-9.0) Ur Specific [place] (1.005-1.025) Urine Protein (Neg-Trace) mg/dL Urine Glucose (UA) (Negative) mg/dL Urine Ketones (Negative) mg/dL Urine Blood (Negative) Urine Nitrite (Negative) Ur Leukocyte Esterase (Negative) Urine RBC (0-2) /HPF Urine WBC (0-5) /HPF Ur Squamous Epith Cells (0-2) /HPF Urine Bacteria (None Seen) Hyaline Casts (0-2) /LPF Urine Opiates Screen (Not Detect) Urine Fentanyl Screen (Not Detect) Ur Barbiturates Screen (Not Detect) Ur Phencyclidine Scrn (Not Detect) Ur Amphetamines Screen (Not Detect) U Benzodiazepines Scrn (Not Detect) Urine Cocaine Screen (Not Detect) U Marijuana (THC) Screen (Not Detect) Ethyl Alcohol mg/dL COVID-19 (JESS) (Negative) COVID-19 Clin Com Independent Interpretation I performed an independent interpretation of an: Plain X-Ray (XR/XR chest 1V IMPRESSION: No acute cardiopulmonary findings.) and CT Scan (CT/CT head/brain wo IV con IMPRESSION: Normal CT scan of the head.) Radiology Impression Discussion of test interpretation with radiology: I have reviewed the radiologist's reading. Core Measures AMI core measures followed: Yes Measure exclusions: not indicated Critical Care Time Critical Care Time Critical Care Time: No Discharge Plan Discharge Clinical Impression: Syncope, Alcohol withdrawal, Depression with suicidal ideation, Elevated troponin Patient Disposition: Admitted As Inpatient Prescriptions: No Action lidocaine [Lidocaine Pain Relief] 4 % Adhesive Patch,Medicated 1 patch transdermal DAILY PRN (Reason: back, knee) Qty: 15 0RF Protocol: Apply to: Apply to: back, knee trazodone 50 mg Tablet 50 mg PO BEDTIME PRN (Reason: Insomnia) Qty: 30 0RF mirtazapine 15 mg Tablet 15 mg PO BEDTIME Qty: 30 0RF thiamine mononitrate (vit B1) 100 mg Tablet 100 mg PO DAILY Qty: 30 0RF multivitamin Tablet 1 tab PO DAILY Qty: 30 0RF
[2022-09-20 18:40] LABS: MANUAL DIFF FLAG NO
[2022-09-20 18:43] VITALS: BP 122/77; BP 137/84; PULSE 90; PULSE 95; RESP 16; TEMP 36.8; O2SAT 95; O2SAT 96; BMI 27.4
[2022-09-20 18:48] VITALS: O2SAT 96
[2022-09-20 19:00] LABS: COVID-19 Test Negative (Negative); IDNOW Serial# 08D9AD1C
[2022-09-20 19:01] LABS: Basophils Absolute Auto 0.1 X10*3/uL (0.0-0.2); Basophils Percent Auto 0.5 % (0-2); D Dimer High Sensitivity 209 NG/ML; Eosinophils Absolute Auto 0.1 X10*3/uL (0.0-0.4); Eosinophils Percent Auto 0.5 % (0-4); Hematocrit 39.1 % (42.0-52.0); Hemoglobin 13.8 g/dl (14.0-18.0); Imm Gran Abs Auto 0.05 X10*3/uL (0.00-0.03); Imm Gran Pct Auto 0.5 % (0.0-0.4); Lymphocytes Absolute Auto 3.6 X10*3/uL (1.2-4.9); Lymphocytes Percent Auto 33.9 % (20-40); Mean Corpuscular HGB Conc 35.3 g/dl (31.0-36.0); Mean Corpuscular Hemoglobin 32.8 pg (27.0-33.0); Mean Corpuscular Volume 92.9 fL (80.0-98.0); Mean Platelet Volume 8.6 fL (9.4-12.4); Monocytes Absolute Auto 1.1 X10*3/uL (0.1-1.2); Monocytes Percent Auto 9.9 % (2-11); Neutrophils Absolute Auto 5.9 x10*3/uL (2.0-8.3); Neutrophils Percent Auto 54.7 % (45-73); Platelet Count 208 X10*3/uL (160-400); Red Blood Count 4.21 X10*6/uL (4.60-5.80); Red Cell Distribution Width 12.4 % (11.0-16.0); White Blood Count 10.7 X10*3/uL (4.8-10.8)
[2022-09-20 19:08] LABS: Alanine Aminotransferase 121 U/L (0-40); Albumin Level 4.8 g/dL (3.5-5.0); Alkaline Phosphatase 71 U/L (39-117); Anion Gap 18 (12-20); Aspartate Amino Transferase 201 U/L (5-37); Bilirubin Total 0.7 mg/dL (0.0-1.0); Blood Urea Nitrogen 5 mg/dL (9-16); Calcium 9.5 mg/dL (8.4-10.2); Carbon Dioxide 25 mmol/L (22-29); Chloride 103 mmol/L (96-108); Estimated Glomerular Filt Rate > 60; Ethanol 241 mg/dL; Glucose Random 106 mg/dL (60-115); Lipase 87 U/L (8-78); Magnesium 2.1 mg/dL (1.6-2.6); Potassium 3.3 mmol/L (3.3-5.1); Sodium 143 mmol/L (135-145); Total Protein 7.9 g/dL (6.5-8.0)
[2022-09-20 19:10] LABS: Appearance Urine Clear; Color Urine Yellow; Glucose Urine UA Negative (Negative); Leukocyte Esterase Urine Negative (Negative); Nitrite Urine Negative (Negative); Specific Gravity - Urine <= 1.005 (1.005-1.025); UMIC TRIGGER UACC YES; Urine Blood Trace (Negative); Urine Ketones Negative (Negative); Urine Protein Negative (Neg-Trace)
[2022-09-20 19:16] LABS: Troponin-I High Sensitivity 74.7 ng/L (<3.5-35.0)
[2022-09-20 19:22] LABS: Amphetamine Screen Urine Not Detected (Not Detect); Barbiturates, Urine Not Detected (Not Detect); Benzodiazepines Screen Urine Not Detected (Not Detect); Cannabinoid Screen Urine POSITIVE (Not Detect); Cocaine Screen Urine Not Detected (Not Detect); Fentanyl, urine Not Detected (Not Detect); Opiate Screen Urine Not Detected (Not Detect); Phencyclidine Screen Urine Not Detected (Not Detect)
[2022-09-20 19:37] VITALS: BP 131/75; PULSE 91; RESP 16; TEMP 36.9; O2SAT 96
--- NOTE | 2022-09-20 19:47 | PC.NURSE ---
assumed care of pt at 1900 - pt resting comfortably on stretcher on quality assurance monitor chassis. waiting for lab results and imaging. call grace within reach will ctm
[2022-09-20 19:49] LABS: Lactic Acid 3.4 mmol/L (0.5-2.0)
[2022-09-20 20:19] LABS: Bacteria Urine None Seen (None Seen); Hyaline Casts Urine 0-2 /LPF (0-2); RBC Urine 0-2 /HPF (0-2); Squamous Epithelial Cell Urine 0-2 /HPF (0-2); WBC Urine 0-5 /HPF (0-5)
[2022-09-20 20:37] LABS: Reflex Lactate? Lactic Acid Added
[2022-09-20] MEDS: 0.9 % Sodium Chloride 1,000 ML 999 ML IV (20:37)
[2022-09-20] MEDS: LORazepam 2 MG/ML VIAL IVPUSH (20:37)
[2022-09-20 21:02] LABS: Troponin-I High Sensitivity 77.6 ng/L (<3.5-35.0)
[2022-09-20 22:12] VITALS: BP 117/71; PULSE 84; RESP 23; O2SAT 95
--- NOTE | 2022-09-20 22:44 | PM.IMHP ---
History of Present Illness Date of Service: 09/20/22 Chief Complaint: Alcohol use disorder This is a 51-year-old male with pertinent history of alcohol use disorder, mood disorder presents to the emergency department for concern of alcohol withdrawal. Patient states he drinks multiple beers a day, more than 15. His last drink was prior to presentation. He has concern for alcohol withdrawal as he does have previous history of DTs and alcohol withdrawal seizures. Patient does state that he feels anxious and has tremors. He has fallen multiple times which he thinks is due to alcohol use disorder. No loss of consciousness. No jerking movement of extremities. Patient denies fever, chills, chest discomfort, palpitations, shortness of breath, abdominal pain, changes in urinary or bowel habits. In the emergency department, CIWA found to be elevated and patient was initiated on phenobarb protocol Review of Systems Constitutional: Constitutional: Reports lethargy Cardiovascular: Cardiovascular: Reports no additional cardiovascular complaints Respiratory: Respiratory: Reports no additional respiratory complaints Gastrointestinal: Gastrointestinal: Reports no additional gastrointestinal complaints Genitourinary: Genitourinary: Reports no additional male genitourinary complaints [facility] Medical History Alcohol use disorder, severe, dependence PTSD (post-traumatic stress disorder) Recurrent major depression-severe Pertinent family history: No family history of early CAD Social History Household Members: Family and None Household Members Other:: mother Housing: Apartment Do you presently have visiting nurse or other home services: No Alcohol intake: current Alcohol intake frequency: 3 or more drinks per day Alcohol type: beer and hard liquor Patient Tobacco Use Status: Current everyday Tobacco user Tobacco use type: Cigarette Cigarette Packs Per Day: 1.5 Cigarettes Per Day: 30.0 Years Smoked: 15+ Smoked in Last 30 Days: Yes Second Hand Smoke Exposure: Yes Use of substances other than those prescribed or required for medical reasons: Unknown Substance Use Type: Marijuana Advance Directives: No Advance Directives Information Provided: No service: No Sexual orientation: Straight/Heterosexual Meds Allergies Allergy/AdvReac Type Severity Reaction Status Date / Time carrot Allergy Severe Anaphylaxis Verified 09/20/22 18:43 Active Medications: Current Medications Acetaminophen (Acetaminophen 325 Mg Tablet) 650 mg PO Q6H PRN PRN Reason: Pain, Mild (Pain Scale 1-3) Enoxaparin Sodium (Enoxaparin Sodium 40 Mg/0.4 Ml Syringe) 40 mg SUBCUT Q24H [facility] Sodium Chloride (Ns) 1,000 mls @ 125 mls/hr IVCONT .Q8H [facility] Melatonin (Melatonin 3 Mg Tablet) 6 mg PO BEDTIME PRN PRN Reason: Insomnia Ondansetron HCl (Ondansetron Hcl 4 Mg/2 Ml Vial) 4 mg IVPUSH Q8H PRN PRN Reason: Nausea and Vomiting Sodium Chloride (0.9 % Sodium Chloride Flush 3 Ml Syringe) 3 ml IVFLUSH QSHIFT [facility] Physical Exam Vital Signs and Narrative: Vital Signs: Last Vital Signs Temp 98.5 F 09/20/22 19:37 Pulse 84 09/20/22 22:12 Resp 23 H 09/20/22 22:12 BP 117/71 09/20/22 22:12 Pulse Ox 95 09/20/22 22:12 O2 Del Method Room Air 09/20/22 22:12 BMI result Body Mass Index 27.4 Middle-aged male lying in bed in no distress Neck supple, no JVD Regular rate and rhythm, S1-S2 heard Regular breath sounds bilaterally, no wheezing or crackles appreciated Abdomen soft nontender, no guarding, no rigidity Patient is drowsy and eye opening to verbal stimulus Psych: Lethargic No pedal edema Results Labs 09/20/22 18:30 09/20/22 18:30 Labs: Laboratory Results - last 24 hr 09/20/22 09/20/22 09/20/22 18:30 18:30 18:30 MCV 92.9 MCH 32.8 MCHC 35.3 RDW 12.4 Plt Count 208 MPV 8.6 L Immature Gran % (Auto) 0.5 H Neut % (Auto) 54.7 Lymph % (Auto) 33.9 [place] % (Auto) 9.9 Eos % (Auto) 0.5 Baso % (Auto) 0.5 Lymph # (Auto) 3.6 [place] # (Auto) 1.1 Eos # (Auto) 0.1 Baso # (Auto) 0.1 Abs Immat Gran (auto) 0.05 H Absolute Neuts (auto) 5.9 Absolute Nucleated RBC 0.000 Nucleated RBC % (auto) 0.0 D-Dimer High Sensitivty 209 Anion Gap 18 Estim Creat Clear Calc 119.0 Estimated GFR > 60 Random Glucose 106 Lactic Acid Calcium 9.5 Magnesium 2.1 Total Bilirubin 0.7 AST 201 H ALT 121 H Alkaline Phosphatase 71 Total Creatine Kinase Total Protein 7.9 Albumin 4.8 Lipase 87 H Urine Color Urine Appearance Urine pH Ur Specific [place] Urine Protein Urine Glucose (UA) Urine Ketones Urine Blood Urine Nitrite Ur Leukocyte Esterase Urine RBC Urine WBC Ur Squamous Epith Cells Urine Bacteria Hyaline Casts Urine Opiates Screen Urine Fentanyl Screen Ur Barbiturates Screen Ur Phencyclidine Scrn Ur Amphetamines Screen U Benzodiazepines Scrn Urine Cocaine Screen U Marijuana (THC) Screen Ethyl Alcohol 241 COVID-19 (JESS) COVID-19 Clin Com 09/20/22 09/20/22 09/20/22 18:30 18:30 18:31 MCV MCH MCHC RDW Plt Count MPV Immature Gran % (Auto) Neut % (Auto) Lymph % (Auto) [place] % (Auto) Eos % (Auto) Baso % (Auto) Lymph # (Auto) [place] # (Auto) Eos # (Auto) Baso # (Auto) Abs Immat Gran (auto) Absolute Neuts (auto) Absolute Nucleated RBC Nucleated RBC % (auto) D-Dimer High Sensitivty Anion Gap Estim Creat Clear Calc Estimated GFR Random Glucose Lactic Acid 3.4 H* Calcium Magnesium Total Bilirubin AST ALT Alkaline Phosphatase Total Creatine Kinase 1063 H Total Protein Albumin Lipase Urine Color Urine Appearance Urine pH Ur Specific [place] Urine Protein Urine Glucose (UA) Urine Ketones Urine Blood Urine Nitrite Ur Leukocyte Esterase Urine RBC Urine WBC Ur Squamous Epith Cells Urine Bacteria Hyaline Casts Urine Opiates Screen Urine Fentanyl Screen Ur Barbiturates Screen Ur Phencyclidine Scrn Ur Amphetamines Screen U Benzodiazepines Scrn Urine Cocaine Screen U Marijuana (THC) Screen Ethyl Alcohol COVID-19 (JESS) Negative COVID-19 Clin Com See Note 09/20/22 09/20/22 18:54 18:54 MCV MCH MCHC RDW Plt Count MPV Immature Gran % (Auto) Neut % (Auto) Lymph % (Auto) [place] % (Auto) Eos % (Auto) Baso % (Auto) Lymph # (Auto) [place] # (Auto) Eos # (Auto) Baso # (Auto) Abs Immat Gran (auto) Absolute Neuts (auto) Absolute Nucleated RBC Nucleated RBC % (auto) D-Dimer High Sensitivty Anion Gap Estim Creat Clear Calc Estimated GFR Random Glucose Lactic Acid Calcium Magnesium Total Bilirubin AST ALT Alkaline Phosphatase Total Creatine Kinase Total Protein Albumin Lipase Urine Color Yellow Urine Appearance Clear Urine pH 6.0 Ur Specific [place] <= 1.005 Urine Protein Negative Urine Glucose (UA) Negative Urine Ketones Negative Urine Blood Trace H Urine Nitrite Negative Ur Leukocyte Esterase Negative Urine RBC 0-2 Urine WBC 0-5 Ur Squamous Epith Cells 0-2 Urine Bacteria None Seen Hyaline Casts 0-2 Urine Opiates Screen Not Detected Urine Fentanyl Screen Not Detected Ur Barbiturates Screen Not Detected Ur Phencyclidine Scrn Not Detected Ur Amphetamines Screen Not Detected U Benzodiazepines Scrn Not Detected Urine Cocaine Screen Not Detected U Marijuana (THC) Screen POSITIVE H Ethyl Alcohol COVID-19 (JESS) COVID-19 Clin Com Imaging Radiologist's Impressions: Impressions Chest X-Ray 09/20/22 19:16 IMPRESSION: No acute cardiopulmonary findings. Head CT 09/20/22 19:16 IMPRESSION: Normal CT scan of the head. Assessment and Plan (1) Alcohol use disorder, severe, dependence: Status: Acute Plan This is a 51-year-old male with pertinent history of alcohol use disorder, mood disorder presents to the emergency department for concern of alcohol withdrawal. #. Alcohol use disorder with concerns of withdrawal. Initiated on phenobarb protocol. Monitor CIWA. Consulting addiction team and getting. Initiated folic acid and thiamine #. Frequent falls, likely in the setting of alcohol use disorder. Obtaining B12. Consulting Physical therapy to evaluate and treat #. Mood disorder. Continue home mood stabilizers #. Acute lactic acidosis. Likely in the setting of dehydration. No sepsis #. Mild traumatic rhabdo. Repeat in a.m.. Resuscitating with IV crystalloids #. Elevated troponin. Likely in the setting of increased demand. Repeat in a.m. Med rec pending DVT prophylaxis: Lovenox Full code Admit as inpatient and will require two night minimum hospital stay for close monitoring of mentation and safe disposition Time Spent With Patient Time: Total time managing care of this patient today ____ minutes. Quality Stroke Does the patient have a stroke diagnosis?: No VTE Prior VTE?: No VTE Risk Level:: Medical - moderate - high VTE Device Contraindication: Treatment Not Indicated VTE Drug Contraindication: N/A - Med Ordered
[2022-09-20 22:57] LABS: ~Lactic Acid-LAB USE ONLY 2.9 mmol/L (0.5-2.0)
[2022-09-20] MEDS: Enoxaparin Sodium 40 MG/0.4 ML SYRINGE SUBCUT (23:01)
[2022-09-20] MEDS: Thiamine HCL 100 MG in 0.9 % Sodium Chloride 100 ML 202 MG IV (23:01)
[2022-09-21] MEDS: 0.9 % Sodium Chloride 1,000 ML 125 ML IVCONT ×2 (00:14→14:47)
[2022-09-21 00:18] LABS: Folate 5.1 ng/mL (> or = 4.0); Vitamin B12 403 pg/mL (200-900)
[2022-09-21 00:21] LABS: Reflex Lactate? 2 Y
[2022-09-21 00:56] LABS: ~Lactic Acid-LAB USE ONLY 1.8 mmol/L (0.5-2.0)
[2022-09-21] MEDS: PHENobarbitaL 200 MG PO ONCE 300 MG PO ×2 (01:59→06:32)
[2022-09-21 04:30] VITALS: BP 117/74; PULSE 72; RESP 16; TEMP 36.5; O2SAT 93
--- NOTE | 2022-09-21 04:37 | PC.NURSE ---
pt ambulated with this RN to and from bathroom but was very unsteady on his feet likely d/t being in the bed for so long. pt offers no current complaints is in no apparent respiratory or physical distress. denies n/v anxiety AH/VH or tremors at this time. vital signs updated will ctm . sitter in place
[2022-09-21 05:44] LABS: MANUAL DIFF FLAG NO
[2022-09-21 05:45] LABS: Basophils Percent Auto 0.5 % (0-2); Eosinophils Absolute Auto 0.1 X10*3/uL (0.0-0.4); Eosinophils Percent Auto 1.5 % (0-4); Hematocrit 36.6 % (42.0-52.0); Hemoglobin 12.7 g/dl (14.0-18.0); Imm Gran Abs Auto 0.03 X10*3/uL (0.00-0.03); Imm Gran Pct Auto 0.4 % (0.0-0.4); Lymphocytes Absolute Auto 2.4 X10*3/uL (1.2-4.9); Lymphocytes Percent Auto 32.6 % (20-40); Mean Corpuscular HGB Conc 34.7 g/dl (31.0-36.0); Mean Corpuscular Hemoglobin 32.7 pg (27.0-33.0); Mean Corpuscular Volume 94.3 fL (80.0-98.0); Mean Platelet Volume 8.9 fL (9.4-12.4); Monocytes Absolute Auto 0.8 X10*3/uL (0.1-1.2); Monocytes Percent Auto 10.1 % (2-11); Neutrophils Absolute Auto 4.1 x10*3/uL (2.0-8.3); Neutrophils Percent Auto 54.9 % (45-73); Platelet Count 161 X10*3/uL (160-400); Red Blood Count 3.88 X10*6/uL (4.60-5.80); Red Cell Distribution Width 12.4 % (11.0-16.0); White Blood Count 7.5 X10*3/uL (4.8-10.8)
[2022-09-21 06:00] LABS: Anion Gap 15 (12-20); Blood Urea Nitrogen 5 mg/dL (9-16); Calcium 8.8 mg/dL (8.4-10.2); Carbon Dioxide 26 mmol/L (22-29); Chloride 104 mmol/L (96-108); Creatinine Clr Calc Pharmacy 112.7; Estimated Glomerular Filt Rate > 60; Glucose Random 98 mg/dL (60-115); Sodium 142 mmol/L (135-145)
[2022-09-21 06:59] VITALS: BP 119/74; PULSE 78; RESP 14; TEMP 37.1; O2SAT 97
[2022-09-21] MEDS: PHENobarbitaL 15 MG TABLET 45 MG PO ×2 (08:30→21:18)
[2022-09-21] MEDS: Thiamine HCL 100 MG TABLET PO (08:30)
[2022-09-21] MEDS: Folic Acid 1 MG TABLET PO (08:30)
--- NOTE | 2022-09-21 09:23 | PC.NURSE ---
Pt currently resting, denied any pain or discomfort.
[2022-09-21 09:26] VITALS: BP 119/74; PULSE 78; O2SAT 97
--- NOTE | 2022-09-21 10:55 | P.PNIM_ITS ---
Subjective Subjective Date of Service: 09/21/22 Interval History: tremulous Physical Exam Vital Signs: Vital Signs: Last Vital Signs Temp 98.7 F 09/21/22 06:59 Pulse 78 09/21/22 09:26 Resp 14 09/21/22 06:59 BP 119/74 09/21/22 09:26 Pulse Ox 97 09/21/22 09:26 O2 Del Method Room Air 09/21/22 06:59 BMI result Body Mass Index 27.4 alert oriented times 3, tremulous Objective Data Active Medications Acetaminophen (Acetaminophen 325 Mg Tablet) 650 mg PO Q6H PRN PRN Reason: Pain, Mild (Pain Scale 1-3) Enoxaparin Sodium (Enoxaparin Sodium 40 Mg/0.4 Ml Syringe) 40 mg SUBCUT Q24H [facility] Last Admin: 09/20/22 23:01 Dose: 40 mg Documented By: LUCIA Folic Acid (Folic Acid 1 Mg Tablet) 1 mg PO DAILY [facility] Last Admin: 09/21/22 08:30 Dose: 1 mg Documented By: CHRISTIE Sodium Chloride (Ns) 1,000 mls @ 125 mls/hr IVCONT .Q8H [facility] Last Admin: 09/21/22 06:33 Dose: Not Given Documented By: LUCIA Non-Admin Reason: IV Running Melatonin (Melatonin 3 Mg Tablet) 6 mg PO BEDTIME PRN PRN Reason: Insomnia Ondansetron HCl (Ondansetron Hcl 4 Mg/2 Ml Vial) 4 mg IVPUSH Q8H PRN PRN Reason: Nausea and Vomiting Pharmacy Consult (Consult Rx Perform Med Rec) 1 each MISCELLANE ONCE PRN PRN Reason: Consult order Pharmacy Consult (Consult Rx Etoh Phenob Po Only) 1 each MISCELLANE ONCE PRN; Protocol PRN Reason: Consult order Phenobarbital (Phenobarbital 15 Mg Tablet) 45 mg PO BID [facility]; Protocol Stop: 09/22/22 21:01 Last Admin: 09/21/22 08:30 Dose: 45 mg Documented By: CHRISTIE Phenobarbital (Phenobarbital 30 Mg Tablet) 30 mg PO BID [facility]; Protocol Stop: 09/24/22 21:01 Phenobarbital (Phenobarbital 15 Mg Tablet) 15 mg PO DAILY [facility]; Protocol Stop: 09/26/22 09:01 Sodium Chloride (0.9 % Sodium Chloride Flush 3 Ml Syringe) 3 ml IVFLUSH QSHIFT [facility] Last Admin: 09/21/22 09:22 Dose: Not Given Documented By: CHRISTIE Non-Admin Reason: IV Running Thiamine HCl (Thiamine Hcl 100 Mg Tablet) 100 mg PO DAILY [facility] Last Admin: 09/21/22 08:30 Dose: 100 mg Documented By: CHRISTIE Labs 09/21/22 04:56 09/21/22 04:56 Labs: Laboratory Results - last 24 hr 09/20/22 09/20/22 09/20/22 18:30 18:30 18:30 MCV 92.9 MCH 32.8 MCHC 35.3 RDW 12.4 Plt Count 208 MPV 8.6 L Immature Gran % (Auto) 0.5 H Neut % (Auto) 54.7 Lymph % (Auto) 33.9 [place] % (Auto) 9.9 Eos % (Auto) 0.5 Baso % (Auto) 0.5 Lymph # (Auto) 3.6 [place] # (Auto) 1.1 Eos # (Auto) 0.1 Baso # (Auto) 0.1 Abs Immat Gran (auto) 0.05 H Absolute Neuts (auto) 5.9 Absolute Nucleated RBC 0.000 Nucleated RBC % (auto) 0.0 D-Dimer High Sensitivty 209 Anion Gap 18 Estim Creat Clear Calc 119.0 Estimated GFR > 60 Random Glucose 106 Lactic Acid Lactic Acid F/U @ 2Hr Lactic Acid F/U @ 4Hr Calcium 9.5 Magnesium 2.1 Total Bilirubin 0.7 AST 201 H ALT 121 H Alkaline Phosphatase 71 Total Creatine Kinase Total Protein 7.9 Albumin 4.8 Lipase 87 H Vitamin B12 Folate Urine Color Urine Appearance Urine pH Ur Specific [place] Urine Protein Urine Glucose (UA) Urine Ketones Urine Blood Urine Nitrite Ur Leukocyte Esterase Urine RBC Urine WBC Ur Squamous Epith Cells Urine Bacteria Hyaline Casts Urine Opiates Screen Urine Fentanyl Screen Ur Barbiturates Screen Ur Phencyclidine Scrn Ur Amphetamines Screen U Benzodiazepines Scrn Urine Cocaine Screen U Marijuana (THC) Screen Ethyl Alcohol 241 COVID-19 (JESS) COVID-19 Clin Com 09/20/22 09/20/22 09/20/22 18:30 18:30 18:31 MCV MCH MCHC RDW Plt Count MPV Immature Gran % (Auto) Neut % (Auto) Lymph % (Auto) [place] % (Auto) Eos % (Auto) Baso % (Auto) Lymph # (Auto) [place] # (Auto) Eos # (Auto) Baso # (Auto) Abs Immat Gran (auto) Absolute Neuts (auto) Absolute Nucleated RBC Nucleated RBC % (auto) D-Dimer High Sensitivty Anion Gap Estim Creat Clear Calc Estimated GFR Random Glucose Lactic Acid 3.4 H* Lactic Acid F/U @ 2Hr Lactic Acid F/U @ 4Hr Calcium Magnesium Total Bilirubin AST ALT Alkaline Phosphatase Total Creatine Kinase 1063 H Total Protein Albumin Lipase Vitamin B12 Folate Urine Color Urine Appearance Urine pH Ur Specific [place] Urine Protein Urine Glucose (UA) Urine Ketones Urine Blood Urine Nitrite Ur Leukocyte Esterase Urine RBC Urine WBC Ur Squamous Epith Cells Urine Bacteria Hyaline Casts Urine Opiates Screen Urine Fentanyl Screen Ur Barbiturates Screen Ur Phencyclidine Scrn Ur Amphetamines Screen U Benzodiazepines Scrn Urine Cocaine Screen U Marijuana (THC) Screen Ethyl Alcohol COVID-19 (JESS) Negative COVID-19 Clin Com See Note 09/20/22 09/20/22 09/20/22 18:54 18:54 22:17 MCV MCH MCHC RDW Plt Count MPV Immature Gran % (Auto) Neut % (Auto) Lymph % (Auto) [place] % (Auto) Eos % (Auto) Baso % (Auto) Lymph # (Auto) [place] # (Auto) Eos # (Auto) Baso # (Auto) Abs Immat Gran (auto) Absolute Neuts (auto) Absolute Nucleated RBC Nucleated RBC % (auto) D-Dimer High Sensitivty Anion Gap Estim Creat Clear Calc Estimated GFR Random Glucose Lactic Acid Lactic Acid F/U @ 2Hr 2.9 H* Lactic Acid F/U @ 4Hr Calcium Magnesium Total Bilirubin AST ALT Alkaline Phosphatase Total Creatine Kinase Total Protein Albumin Lipase Vitamin B12 Folate Urine Color Yellow Urine Appearance Clear Urine pH 6.0 Ur Specific [place] <= 1.005 Urine Protein Negative Urine Glucose (UA) Negative Urine Ketones Negative Urine Blood Trace H Urine Nitrite Negative Ur Leukocyte Esterase Negative Urine RBC 0-2 Urine WBC 0-5 Ur Squamous Epith Cells 0-2 Urine Bacteria None Seen Hyaline Casts 0-2 Urine Opiates Screen Not Detected Urine Fentanyl Screen Not Detected Ur Barbiturates Screen Not Detected Ur Phencyclidine Scrn Not Detected Ur Amphetamines Screen Not Detected U Benzodiazepines Scrn Not Detected Urine Cocaine Screen Not Detected U Marijuana (THC) Screen POSITIVE H Ethyl Alcohol COVID-19 ([facility]ESS) COVID-19 Clin Com 09/20/22 09/21/22 09/21/22 23:22 00:35 04:56 MCV 94.3 MCH 32.7 MCHC 34.7 RDW 12.4 Plt Count 161 MPV 8.9 L Immature Gran % (Auto) 0.4 Neut % (Auto) 54.9 Lymph % (Auto) 32.6 [place] % (Auto) 10.1 Eos % (Auto) 1.5 Baso % (Auto) 0.5 Lymph # (Auto) 2.4 [place] # (Auto) 0.8 Eos # (Auto) 0.1 Baso # (Auto) 0.0 Abs Immat Gran (auto) 0.03 Absolute Neuts (auto) 4.1 Absolute Nucleated RBC 0.000 Nucleated RBC % (auto) 0.0 D-Dimer High Sensitivty Anion Gap Estim Creat Clear Calc Estimated GFR Random Glucose Lactic Acid Lactic Acid F/U @ 2Hr Lactic Acid F/U @ 4Hr 1.8 Calcium Magnesium Total Bilirubin AST ALT Alkaline Phosphatase Total Creatine Kinase Total Protein Albumin Lipase Vitamin B12 403 Folate 5.1 Urine Color Urine Appearance Urine pH Ur Specific [place] Urine Protein Urine Glucose (UA) Urine Ketones Urine Blood Urine Nitrite Ur Leukocyte Esterase Urine RBC Urine WBC Ur Squamous Epith Cells Urine Bacteria Hyaline Casts Urine Opiates Screen Urine Fentanyl Screen Ur Barbiturates Screen Ur Phencyclidine Scrn Ur Amphetamines Screen U Benzodiazepines Scrn Urine Cocaine Screen U Marijuana (THC) Screen Ethyl Alcohol COVID-19 ([facility]ESS) COVID-19 Clin Com 09/21/22 04:56 MCV MCH MCHC RDW Plt Count MPV Immature Gran % (Auto) Neut % (Auto) Lymph % (Auto) [place] % (Auto) Eos % (Auto) Baso % (Auto) Lymph # (Auto) [place] # (Auto) Eos # (Auto) Baso # (Auto) Abs Immat Gran (auto) Absolute Neuts (auto) Absolute Nucleated RBC Nucleated RBC % (auto) D-Dimer High Sensitivty Anion Gap 15 Estim Creat Clear Calc 112.7 Estimated GFR > 60 Random Glucose 98 Lactic Acid Lactic Acid F/U @ 2Hr Lactic Acid F/U @ 4Hr Calcium 8.8 D Magnesium Total Bilirubin AST ALT Alkaline Phosphatase Total Creatine Kinase 730 H Total Protein Albumin Lipase Vitamin B12 Folate Urine Color Urine Appearance Urine pH Ur Specific [place] Urine Protein Urine Glucose (UA) Urine Ketones Urine Blood Urine Nitrite Ur Leukocyte Esterase Urine RBC Urine WBC Ur Squamous Epith Cells Urine Bacteria Hyaline Casts Urine Opiates Screen Urine Fentanyl Screen Ur Barbiturates Screen Ur Phencyclidine Scrn Ur Amphetamines Screen U Benzodiazepines Scrn Urine Cocaine Screen U Marijuana (THC) Screen Ethyl Alcohol COVID-19 ([facility]) COVID-19 Clin Com Assessment and Plan (1) Alcohol withdrawal: Status: Acute Plan 51M PMH etoh dependence presented with falls etoh dependence with withdrawal phenobarb, ciwa mild acute rhabdo resolved elevated trop due to rhabdo ?SI bhn eval prior to discharge dvt prophylaxis - lovenox full code reason for continued hospitalization:withdrawal Time Spent With Patient Time: Total time managing care of this patient today ____ minutes. Quality Stroke Does the patient have a stroke diagnosis?: No VTE Prior VTE?: No VTE Risk Level:: Medical - moderate - high VTE Device Contraindication: Treatment Not Indicated VTE Drug Contraindication: N/A - Med Ordered
--- NOTE | 2022-09-21 11:52 | MHC.CM.PN ---
Met w/pt to discuss d/c planning needs: pt resides alone, does not have DME or services and describes self as independent. He has a working cell phone with him. Pt does not have a PCP and hasn't seen a provider in over 10 years He has health insurance and states he is able to contact member services for assistance w/provider sign up. Pt does not drive: relies on others or [employer] for transportation. Declined HCP completion assistance: will call for his own transportation to home. Pt would benefit from CARE team consult r/t ETOH misuse. CM to follow
--- NOTE | 2022-09-21 12:43 | PHA.MEDREC ---
Pharmacy Consult ? Medication Reconciliation Pharmacy has completed the medication reconciliation. spoke with patient and says he is currently not on any medications. no claim history either.
[2022-09-21 13:07] VITALS: BP 123/83; PULSE 60; RESP 16; O2SAT 95
[2022-09-21] MEDS: 0.9 % Sodium Chloride Flush 3 ML SYRINGE IVFLUSH (15:22)
[2022-09-21 16:26] VITALS: BMI 27.1
[2022-09-21 16:50] VITALS: BP 134/94; PULSE 63; RESP 20; TEMP 36.7; O2SAT 96
[2022-09-21 20:00] VITALS: BP 131/76; PULSE 54; RESP 18; TEMP 36.8; O2SAT 96
[2022-09-21] MEDS: Acetaminophen 325 MG TABLET 650 MG PO (21:18)
[2022-09-21] MEDS: Melatonin 3 MG TABLET 6 MG PO (21:18)
[2022-09-22] VITALS: BP 112/75; PULSE 63; RESP 16; TEMP 36.1; O2SAT 97
[2022-09-22] MEDS: 0.9 % Sodium Chloride 1,000 ML 125 ML IVCONT ×3 (00:23→17:45)
[2022-09-22] MEDS: Enoxaparin Sodium 40 MG/0.4 ML SYRINGE SUBCUT ×2 (00:23→22:59)
[2022-09-22] MEDS: 0.9 % Sodium Chloride Flush 3 ML SYRINGE IVFLUSH (00:26)
[2022-09-22 04:00] VITALS: BP 114/70; PULSE 53; RESP 15; TEMP 36.7; O2SAT 97
[2022-09-22] MEDS: ondansetron HCL 4 MG/2 ML VIAL IVPUSH (05:31)
[2022-09-22 06:10] LABS: Hematocrit 36.2 % (42.0-52.0); Hemoglobin 12.3 g/dl (14.0-18.0); Mean Corpuscular Volume 97.1 fL (80.0-98.0); Mean Platelet Volume 9.4 fL (9.4-12.4); Platelet Count 148 X10*3/uL (160-400); Red Blood Count 3.73 X10*6/uL (4.60-5.80); Red Cell Distribution Width 12.6 % (11.0-16.0); White Blood Count 5.3 X10*3/uL (4.8-10.8)
[2022-09-22 06:15] LABS: INTERNATIONAL NORM RATIO 1.1 (0.9-1.1); Prothrombin Time 13.3 SEC (11.1-13.3)
[2022-09-22 06:26] LABS: Alanine Aminotransferase 98 U/L (0-40); Albumin Level 3.5 g/dL (3.5-5.0); Alkaline Phosphatase 71 U/L (39-117); Anion Gap 14 (12-20); Aspartate Amino Transferase 160 U/L (5-37); Bilirubin Direct 0.6 mg/dL (0.0-0.5); Bilirubin Total 1.2 mg/dL (0.0-1.0); Blood Urea Nitrogen 4 mg/dL (9-16); Calcium 8.7 mg/dL (8.4-10.2); Carbon Dioxide 25 mmol/L (22-29); Chloride 103 mmol/L (96-108); Creatinine Clr Calc Pharmacy 124.3; Estimated Glomerular Filt Rate > 60; Glucose Fasting 95 mg/dL (60-99); Potassium 3.3 mmol/L (3.3-5.1); Sodium 139 mmol/L (135-145); Total Protein 5.9 g/dL (6.5-8.0)
[2022-09-22 08:00] VITALS: BP 111/70; PULSE 58; RESP 18; TEMP 36.7; O2SAT 98
--- NOTE | 2022-09-22 08:17 | P.PNIM_ITS ---
Subjective Subjective Date of Service: 09/22/22 Interval History: shaky Physical Exam Vital Signs: Vital Signs: Last Vital Signs Temp 98.0 F 09/22/22 08:00 Pulse 58 09/22/22 08:00 Resp 18 09/22/22 08:00 BP 111/70 09/22/22 08:00 Pulse Ox 98 09/22/22 08:00 O2 Del Method Room Air 09/22/22 08:00 BMI result Body Mass Index 27.1 alert oriented times 3, tremulous Objective Data Active Medications Acetaminophen (Acetaminophen 325 Mg Tablet) 650 mg PO Q6H PRN PRN Reason: Pain, Mild (Pain Scale 1-3) Last Admin: 09/21/22 21:18 Dose: 650 mg Documented By: GENTRY Enoxaparin Sodium (Enoxaparin Sodium 40 Mg/0.4 Ml Syringe) 40 mg SUBCUT Q24H [facility] Last Admin: 09/22/22 00:23 Dose: 40 mg Documented By: GENTRY Folic Acid (Folic Acid 1 Mg Tablet) 1 mg PO DAILY [facility] Last Admin: 09/21/22 08:30 Dose: 1 mg Documented By: CHRISTIE Sodium Chloride (Ns) 1,000 mls @ 125 mls/hr IVCONT .Q8H [facility] Last Admin: 09/22/22 00:23 Dose: 125 mls/hr Documented By: GENTRY Melatonin (Melatonin 3 Mg Tablet) 6 mg PO BEDTIME PRN PRN Reason: Insomnia Last Admin: 09/21/22 21:18 Dose: 6 mg Documented By: GENTRY Ondansetron HCl (Ondansetron Hcl 4 Mg/2 Ml Vial) 4 mg IVPUSH Q8H PRN PRN Reason: Nausea and Vomiting Last Admin: 09/22/22 05:31 Dose: 4 mg Documented By: GENTRY Pharmacy Consult (Consult Rx Perform Med Rec) 1 each MISCELLANE ONCE PRN PRN Reason: Consult order Pharmacy Consult (Consult Rx Etoh Phenob Po Only) 1 each MISCELLANE ONCE PRN; Protocol PRN Reason: Consult order Phenobarbital (Phenobarbital 15 Mg Tablet) 45 mg PO BID [facility]; Protocol Stop: 09/22/22 21:01 Last Admin: 09/21/22 21:18 Dose: 45 mg Documented By: GENTRY Phenobarbital (Phenobarbital 30 Mg Tablet) 30 mg PO BID [facility]; Protocol Stop: 09/24/22 21:01 Phenobarbital (Phenobarbital 15 Mg Tablet) 15 mg PO DAILY [facility]; Protocol Stop: 09/26/22 09:01 Sodium Chloride (0.9 % Sodium Chloride Flush 3 Ml Syringe) 3 ml IVFLUSH QSHIFT [facility] Last Admin: 09/22/22 00:26 Dose: 3 ml Documented By: GENTRY Thiamine HCl (Thiamine Hcl 100 Mg Tablet) 100 mg PO DAILY [facility] Last Admin: 09/21/22 08:30 Dose: 100 mg Documented By: CHRISTIE Labs 09/22/22 05:52 09/22/22 05:52 Labs: Laboratory Results - last 24 hr 09/22/22 09/22/22 09/22/22 05:52 05:52 05:52 MCV 97.1 MCH 33.0 MCHC 34.0 RDW 12.6 Plt Count 148 L MPV 9.4 Absolute Nucleated RBC 0.000 Nucleated RBC % (auto) 0.0 PT 13.3 INR 1.1 Anion Gap 14 Estim Creat Clear Calc 124.3 Estimated GFR > 60 Fasting Glucose 95 Calcium 8.7 Total Bilirubin 1.2 H Direct Bilirubin 0.6 H AST 160 H ALT 98 H Alkaline Phosphatase 71 Total Protein 5.9 L Albumin 3.5 Microbiology Microbiology Results: Microbiology 09/20/22 18:30 Blood Culture - Preliminary Blood - Venous No growth after 24 hours. 09/20/22 18:30 Blood Culture - Preliminary Blood - Venous No growth after 24 hours. Assessment and Plan (1) Alcohol withdrawal: Status: Acute Plan 51M PMH etoh dependence presented with falls etoh dependence with withdrawal cotninue phenobarb, ciwa acute hypokalemia replace mild acute rhabdo resolved elevated trop due to rhabdo ?SI bhn eval prior to discharge dvt prophylaxis - lovenox full code reason for continued hospitalization:withdrawal Time Spent With Patient Time: Total time managing care of this patient today ____ minutes. Quality Stroke Does the patient have a stroke diagnosis?: No VTE Prior VTE?: No VTE Risk Level:: Medical - moderate - high VTE Device Contraindication: Treatment Not Indicated VTE Drug Contraindication: N/A - Med Ordered
[2022-09-22] MEDS: Thiamine HCL 100 MG TABLET PO (09:09)
[2022-09-22] MEDS: Folic Acid 1 MG TABLET PO (09:09)
[2022-09-22] MEDS: PHENobarbitaL 15 MG TABLET 45 MG PO ×2 (09:09→21:39)
[2022-09-22] MEDS: Potassium Chloride ER 20 MEQ TAB.ER.PRT 40 MEQ PO (09:09)
[2022-09-22 12:00] VITALS: BP 123/77; PULSE 61; RESP 19; TEMP 36.6; O2SAT 98
[2022-09-22] MEDS: Acetaminophen 325 MG TABLET 650 MG PO (14:20)
[2022-09-22 16:00] VITALS: BP 116/72; PULSE 61; RESP 14; TEMP 36.1; O2SAT 97
[2022-09-22 20:00] VITALS: BP 124/82; PULSE 97; RESP 18; TEMP 36.8; O2SAT 96
[2022-09-22] MEDS: PHENobarbitaL 30 MG TABLET PO (20:27)
[2022-09-22] MEDS: Melatonin 3 MG TABLET 6 MG PO (22:59)
[2022-09-23] VITALS: BP 127/74; PULSE 62; RESP 18; TEMP 37; O2SAT 96
[2022-09-23 04:00] VITALS: BP 119/79; PULSE 58; RESP 18; TEMP 37.1; O2SAT 97
[2022-09-23 07:45] VITALS: BP 133/80; PULSE 74; RESP 20; TEMP 36.6; O2SAT 98
[2022-09-23] MEDS: Folic Acid 1 MG TABLET PO (08:11)
[2022-09-23] MEDS: PHENobarbitaL 30 MG TABLET PO (08:11)
[2022-09-23] MEDS: Thiamine HCL 100 MG TABLET PO (08:11)
[2022-09-23] MEDS: 0.9 % Sodium Chloride Flush 3 ML SYRINGE IVFLUSH (08:13)
--- NOTE | 2022-09-23 08:34 | PM.DS ---
DS: Providers Provider Date of Service: 09/23/22 Date of admission: 09/20/22 22:41 Primary care physician: Unknown Physician Consults: 09/20/22 22:43 Addiction Medicine Routine Consulting Provider: Addiction Covering Reason for consultation: alcohol use disorder Consult to Care Team Routine Comment: Reason for consultation: alcohol use disorder DS: Diagnosis Discharge Diagnosis (1) Alcohol withdrawal: Status: Inactive DS: Summary Hospital Course Hospital Course: from initial hpi: 51-year-old male with pertinent history of alcohol use disorder, mood disorder presents to the emergency department for concern of alcohol withdrawal.? Patient states he drinks multiple beers a day, more than 15.? His last drink was prior to presentation.? He has concern for alcohol withdrawal as he does have previous history of DTs and alcohol withdrawal seizures.? Patient does state that he feels anxious and has tremors.? He has fallen multiple times which he thinks is due to alcohol use disorder.? No loss of consciousness.? No jerking movement of extremities.? Patient denies fever, chills, chest discomfort, palpitations, shortness of breath, abdominal pain, changes in urinary or bowel habits. In the emergency department, CIWA found to be elevated and patient was initiated on phenobarb protocol hospital course: patient was admitted for etoh dependnce with withdrawal and mild acute etoh hepatitis. he was treated with phenobarbital and withdrawal resolved. etoh hepatitis remained mild. he had acute hypokalemia which was replaced. mild acute rhabdomyolosis, resolved with iv fluids. for depression with initial question of suicidal ideation, patient reports he is no longer suicidal, denies any plans for self harm. patient will be discharged home. Time Spent with Patient Time attestation: Total time managing care of this patient today ____ minutes. Discharge coordination time: Greater than 30 minutes Quality: Safe Use of Opioids Does Pt have an Active Cancer Diagnosis on the Problem List?: No Quality: Stroke Does the patient have a stroke diagnosis?: No Physical Exam Vital Signs: Vital Signs: Last Vital Signs Temp 97.9 F 09/23/22 07:45 Pulse 74 09/23/22 07:45 Resp 20 09/23/22 07:45 BP 133/80 09/23/22 07:45 Pulse Ox 98 09/23/22 07:45 O2 Del Method Room Air 09/23/22 07:45 BMI result Body Mass Index 27.1 General: AO X 3, no acute distress Resp: CTA bilateral, no accessory muscles used CVS: S1,S2,RRR GI: soft, non tender, non distended Neuro: motor grossly intact, alert Psych: appropriate affect, appropriate insight DS: Data Data Completed and Pending Labs on day of discharge: Preliminary micro results at discharge 09/20/22 18:30 Blood Culture - Preliminary Blood - Venous No growth after 48 hours. 09/20/22 18:30 Blood Culture - Preliminary Blood - Venous No growth after 48 hours. Discharge Plan Discharge Anticipated Discharge Date/Time: 09/23/22 08:32 Patient Disposition: Home, Self-Care Discharge Diagnosis: etoh withdrawal Referrals: Physician,Unknown J [Primary Care Provider] - 1 Week Discharge Medications: No Action No Known Home Meds Discharge Orders: Discharge Order (Routine); Ordered 09/23/22 Ordered By: Phil Nieves Diet: Advance to usual diet Activity on Discharge: As tolerated Stand Alone Forms: Patient Portal Discharge page Care Plan Goals: recovery Health Concerns: etoh, depression Plan of Treatment: avoid etoh, follow up with psych Assessment: see above
--- NOTE | 2022-09-23 09:35 | MHC.CM.PN ---
PTY MEDICALLY CLEARED FOR D/C HOME SELF-CARE, ACID CHANGER IN TO SEE PT AND REVIEW RESOURCES, PT PROVIDED W/HANDOUTS, PT WILL ARRANGE OWN TRANSPORT.
--- NOTE | 2022-09-23 09:38 | MHC.RECOVRN ---
This comic writer met with patient after addiction consult received. Pt presented to ED for concerns for ETOH withdrawal. Pt resting in bed, watching T.V. Pt reports daily drinking 16, 24 oz beers, reports no other substance use. 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 Pt reports injury occurred approximately 10/2021. Pt states 8 months after injury, ETOH recurrence. Pt states prior to recurrence, 2 years in recovery. Pt states during 2 years of recovery attended AA meetings. Pt states in the past, had gone to detox, IOP. Pt reports no CSS, TSS, Sober Home level of care. Pt reports no hx of medications for alcohol use. Pt reports has folks whom are supportive of pts recovery. Pt states due to recent blindness in left eye, has been experiencing extreme anxiety. This comic writer and patient reviewed harm reduction strategies, recovery supports, medications for ETOH use. Pt provided with resource folder. Pt agreeable to t/w checking in later to inquire about any questions. Pt verbalized understanding. CM aware.
== END 2022-09-23 11:26 | disposition home or self-care (01) | DRG 425 ==
LOC: HO.ED 23:04 → HO.EDOVER 23:12 → HO.IMC 09-21 15:20
PROVIDERS: Physician Assistant; Admitting Provider Student in an Organized Health Care Education/Training Program; Emergency Provider Internal Medicine; Visit Provider Internal Medicine
DX: E87.6 Hypokalemia (principal); E87.21 Acute metabolic acidosis; R45.851 Suicidal ideations; F33.2 Major depressive disorder, recurrent severe without psychotic features; T79.6XXA Traumatic ischemia of muscle, initial encounter; F10.239 Alcohol dependence with withdrawal, unspecified; K70.10 Alcoholic hepatitis without ascites; W19.XXXA Unspecified fall, initial encounter; F43.10 Post-traumatic stress disorder, unspecified; Z20.822 Contact with and (suspected) exposure to COVID-19; Z87.891 Personal history of nicotine dependence; Y90.8 Blood alcohol level of 240 mg/100 ml or more
CPT/HCPCS: 36415; 70450; 71045; 80048; 80053; 80076; 80307; 81001; 81003; 82550; 82607; 82746; 83605; 83690; 83735; 84484; 85025; 85027; 85379; 85610; 87040; 87635; 93005; 97162; 99285; J1650; J2060; J2405; J3411

== ENCOUNTER → 2022-09-20 18:05 | Outpatient (BNV) | payer SELFPAY | PROVIDERS: Admitting Provider Student in an Organized Health Care Education/Training Program; Emergency Provider Internal Medicine; Visit Provider Internal Medicine | DX: R94.31 Abnormal electrocardiogram [ECG] [EKG] (principal) | CPT/HCPCS: 93010 ==

== ENCOUNTER → 2022-09-20 19:35 | Outpatient (BNV) | payer SELFPAY | PROVIDERS: Visit Provider Student in an Organized Health Care Education/Training Program | DX: F10.939 Alcohol use, unspecified with withdrawal, unspecified (principal) | CPT/HCPCS: 99222; 99232; 99239 ==